=== PATIENT | female | born 1950 | race Caucasian/White ===

== ENCOUNTER → 2020-09-27 | Outpatient (CLI) | payer OTHER ==
[~2020-09-27] MED LIST: LOPERAMIDE 2 MG2 M1 PO; LUMIGAN2.5 M1 OPHTHALMIC; PLAQUENIL200 MG PO; SIMBRINZA 1%-0.28 ML OPHTHALMIC; SYNTHROID112 MC1 PO; TUMS200 MG PO; XELJANZ5 MG PO; ZESTRIL10 MG PO
[2020-09-27 11:19] LABS: HEMATOCRIT 37.9 % (37.0-47.0); HEMOGLOBIN 12.8 gm/dL (12.0-15.0); MCH 31.4 pg (26.0-34.0); MCHC 33.7 g/dL (28.0-37.0); MCV 93.2 fL (80.0-100.0); RBC 4.07 mil/uL (4.20-5.00); RDW 13.2 % (10.5-14.5); WBC 3.7 thou/uL (4.0-11.0)
[2020-09-27 11:19] LABS: URINE BILIRUBIN NEGATIVE (Negative); URINE BLOOD TRACE (Negative); URINE CLARITY CLEAR; URINE COLOR YELLOW; URINE GLUCOSE-RANDOM* NEGATIVE (Negative); URINE KETONES NEGATIVE (Negative); URINE LEUKOCYTES-REFLEX NEGATIVE (Negative); URINE NITRITE-REFLEX NEGATIVE (Negative); URINE PROTEIN (DIPSTICK) NEGATIVE (Negative); URINE SPECIFIC GRAVITY >= 1.030 (1.005-1.035); URINE UROBILINOGEN 0.2 E.U./dl (0.2-1.0)
[2020-09-27 11:29] LABS: ALBUMIN 4.2 g/dL (3.4-5.0); CALCIUM 9.4 mg/dL (8.5-10.1); CREATININE 0.7 mg/dL (0.6-1.0); POTASSIUM 4.2 mmol/L (3.5-5.1)
[2020-09-27 11:31] LABS: INR 0.94; PROTIME 10.3 Seconds (10.5-12.1)
--- NOTE | 2020-09-27 12:11 | EKG ---
[address] [address] ELECTROCARDIOGRAM REPORT Name: JESICA CARROLL Room #: [facility]#: [id number] Admission: 09/27/20 Attend Phys: Dorian Salguero MD Discharge: Date of : 52 Report #: [id number] [facility] Test Date: 2020-09-27 Test Time: 11:13:42 Pat Name: JESICA CARROLL Department: Room: Gender: F [employer] Property Manager: NATY RICO : 1950 Requested By: Dorian Salguero Order Number: [id number] MD: Juancarlos Shelton Measurements Intervals [place] Rate: 79 P: 77 [place]: 139 QRS: -31 QRSD: 97 T: 64 QT: 408 QTc: 468 Interpretive Statements Sinus rhythm Left axis deviation Baseline wander in lead(s) II,III No previous ECG available for comparison Electronically Signed On 09-27-2020 12:11:02 CDT by Juancarlos Shelton [email or web address] <ELECTRONICALLY SIGNED> By: Juancarlos Shelton MD, [facility] 09/27/20 1211 1113 12 Juancarlos Shelton MD, FACC /EPI
== END ==
LOC: PAC → LAB 10:42 → PAC 12:02
PROVIDERS: ATTEND Orthopaedic Surgery
DX: M17.0 Bilateral primary osteoarthritis of knee (principal); Z01.812 Encounter for preprocedural laboratory examination

== ENCOUNTER 2020-10-03 11:30 | Observation (INO) | payer OTHER ==
[~2020-10-03] VITALS: Ht 160 cm; Wt 59.0 kg
[2020-10-03] VITALS (7 sets, daily range): BP systolic 126–148; BP diastolic 51–71
[2020-10-04 03:00] VITALS: BP 128/56
--- NOTE | 2020-10-04 06:26 | NUR ---
PT'S DTR IN ROOM AT SHIFT CHANGE.PER REPORT,PT DESATS ON RA,PT ON 2L/NC. PT UP TO THE BSC WITH GB/WALKER,PAYAM WELL.DRSG TO L KNEE DRY AND INTACT.PT DENIED PAIN SO FAR.PT ABLE TO VOID POST OP.PT CONT ON IVF AND IV ABX.NO NAUSEA REPORTED SO FAR.CALL LIGHT WITHIN REACH.
[2020-10-04 07:10] VITALS: BP 124/58
--- NOTE | 2020-10-04 08:54 | NUR ---
ASSESSMENT: CM REVIEWED CHART AND SPOKE WITH PATIENT AT THE BEDSIDE. PT IS ALERT AND ORIENTED X4. PT REPORTS THAT SHE LIVES IN THE LOWER FLOOR OF HER DAUGHTER AND HER FAMILYS HOME. PT REPORTS THAT SHE CAN AVOID STEPS BY GOING THROUGH THE YARD AND GOING IN THE BACK DOOR. PT REPORTS SHE CAN AVOID STEPS INSIDE THE HOME WELL. PT REPORTS HAVING A WALKER AT HOME FOR AMBULATION. PT STATES THAT SHE ALREADY HAS OUTPATIENT THERAPPY ARRANGED AT [facility] IN [place] TO BEGIN ON THURSDAY. PT REPORTS BEING INDEPENDENT WITH ADLS AND HAS NO GRAB BAR OR SHOWER CHAIR. CM DISCUSSED ROLE. PT DOES NOT ANTICIPATE HAVING ANY NEEDS FROM CM. CM WILL CONTINUE TO FOLLOW TO ASSIST NEEDED. PT IS TO WORK WITH THERAPY TODAY.
--- NOTE | 2020-10-04 09:40 | NUR ---
Assumed care of pt at 0700. Pt a&ox4. Pain controlled with prn pain meds. Dressing c/d/i. SCDs and VINH hose in place. IVF infusing. Pt working with physical therapy this am. Call light within reach. Fall precautions in place. Will continue to monitor.
[2020-10-04 10:16] VITALS: BP 124/58
--- NOTE | 2020-10-11 11:33 | O ---
[facility] [place] [address] OPERATIVE REPORT Name: JESICA CARROLL Room #: 439-P [facility] Geri Granados#: [id number] Admission: 10/03/20 Attend Phys: Dorian Salguero MD Discharge: 10/04/20 Date of : 52 Report #: [id number] THIS REPORT FOR: cc: FAM - Family physician unknown FAM - Family physician unknown Dorian Salguero MD ~ DOC #: [id number] Dorian Salguero MD DATE OF SERVICE: 10/03/2020 PREOPERATIVE DIAGNOSIS: Left knee rheumatoid arthritis. POSTOPERATIVE DIAGNOSIS: Left knee rheumatoid arthritis. PROCEDURE: Left total knee arthroplasty using Navio robotic assistance. SURGEON: Dorian Salguero MD. CONSULTANTS INTERN: Tori Matamoros PA-C INDICATION FOR CONSULTANTS INTERN: Throughout the case, extensive retraction and manipulation of the knee was required. This was afforded to me by my surgical dental assistant. ANESTHESIA: LMA with adductor canal block. IMPLANTS: [employer] size 5 Journey II BCS Oxinium femur, size 3 tibia, size 35 patella and a size 9 polyethylene. TOURNIQUET TIME: 45 minutes. ESTIMATED BLOOD LOSS: 25 mL COMPLICATIONS: None. SPECIMENS: None. CONDITION UPON LEAVING THE OR: Stable. INDICATIONS FOR PROCEDURE: The patient is a 70-year-old female with rheumatoid arthritis. She has had significant pain in her left knee; and after failure of conservative measures, she elected for left total knee arthroplasty. DESCRIPTION OF PROCEDURE: Risks, benefits, alternatives, and complications were discussed in detail with the patient including, but not limited to, risk of anesthesia, risk of damage to nerves, arteries, or blood vessels, risk for infection, bleeding, risk for continued knee pain, and need for reoperation. [address] [address] OPERATIVE REPORT Name: JESICA CARROLL Mary Room #: 439-P [facility] Geri Granados#: [id number] Admission: 10/03/20 Attend Phys: Dorian Salguero MD Discharge: 10/04/20 Date of : 52 Report #: [id number] Informed consent was obtained from the patient. Left knee was appropriately marked in the preoperative holding area. IV Ancef was given for preoperative antibiotics. Adductor canal block was placed by Anesthesia. She was brought to the operating room and placed in supine position on the operating table. LMA anesthesia was induced without complication. Tourniquet was placed on the left thigh. Left lower extremity was prepped and draped in normal sterile fashion. Timeout was performed properly identifying the patient and procedure as well as instrumentation. All in the operating room was in agreement. Left lower extremity was exsanguinated. Tourniquet was inflated. Tourniquet time was about 49 minutes. Standard midline approach to knee was made with 10 blade through the skin. Dissection was taken down sharply to the fascia and deep flaps were developed medially and laterally. Fresh 10 blade was used to make a medial parapatellar arthrotomy and the knee was inspected. There were severe patellofemoral degenerative changes with moderate medial and lateral degenerative changes. ACL and PCL were removed sharply. Reference pins were placed in the femur and the tibia. The knee was digitally mapped using the Ikro robotic system. Intraoperative plan was made. We sized the size 5 femur, size 3 tibia and a 10 spacer. After acceptance of the intraoperative plan, the distal femoral cut was made with Navio bur. Distal femoral cutting block was pinned in place and chamfer cuts were made. Attention was turned to the tibia. Remainder of the menisci were removed with Bovie cautery. Tibial resection guide was pinned in place using Navio for placement. Tibial resection was made. Flexion and extension gaps were checked and found to have good balance in flexion and extension both medially and laterally. Tibia was sized, found to be a size 3. A size 3 tibial trial was placed, pinned and punched. Size 5 femoral trial was placed and the box cut was made. This was then trialed with size 9 polyethylene. Size 9 polyethylene demonstrated 1-2 mm of laxity medially and laterally throughout range of motion of the knee. 9 mm of bone was resected from the posterior surface of the patella and a size 35 patellar trial button was placed. Knee was taken through range of motion, found to be stable, found to have good patellar tracking. Trial components were removed. Bone ends were thoroughly irrigated with normal saline. Final size 3 tibia, size 5 Journey II BCS Oxinium femur, and a size 35 patella were cemented in place using standard cementation techniques. While the cement cured, a periarticular injection consisting of morphine, ropivacaine, epinephrine, and Toradol was placed around the knee joint capsule. After the cement cured, tourniquet was deflated. Hemostasis was obtained with Bovie cautery. Final size 9 polyethylene was placed. A gram of vancomycin was placed deep in the joint. Fascia was closed with 0 Vicryl. Skin was closed with 2-0 Vicryl, skin staple and a RHODA dressing was applied. The patient tolerated this procedure well and went to recovery room under care of Anesthesia postoperatively. Dorian Salguero MD [facility] [address] [address] OPERATIVE REPORT Name: JESICA CARROLL Room #: 439-P GISELLE Granados#: [id number] Admission: 10/03/20 Attend Phys: Dorian Salguero MD Discharge: 10/04/20 Date of : 52 Report #: [id number] <ELECTRONICALLY SIGNED> By: Dorian Salguero MD 10/11/20 1133 1355 1627 Dorian Salguero MD /nt
== END 2020-10-04 11:40 | disposition home or self-care (01) ==
LOC: OR → TBA 11:31 → OR 11:50 → TBA 14:45 → 4S 14:45
PROVIDERS: ADMIT Orthopaedic Surgery; ATTEND Orthopaedic Surgery
DX: M17.12 Unilateral primary osteoarthritis, left knee (principal); Z79.899 Other long term (current) drug therapy
CPT/HCPCS: 27447; S2900; 50010; 50101; 50415; 50954; 51130; 51225; 51320; 51412; 52001; 52282; 53000; 53078; 53365; 56527; 56528; 57095; 57103; 57110; 57127; 57179; 62110; 62900; 70005